=== PATIENT | female | born 1975 | race Caucasian/White ===

== ENCOUNTER 2017-01-13 12:08 | Day surgery (SDC) | payer MEDICAID ==
[2017-01-13] MEDS ORDERED: NS 1,000 ML IV SCH (13:00)
[2017-01-13] MEDS ORDERED: MIDAZOLAM 2 MG/2 ML VIAL ONE (13:05)
[2017-01-13] MEDS ORDERED: fentaNYL 100 MCG/2 ML INJ ONE (13:05)
[2017-01-13] MEDS ORDERED: IOPAMIDOL (ISOVUE-M 300) 15 ML VIAL IV ONE (13:36)
[2017-01-13] MEDS ORDERED: TRIAMCINOLONE ACETONIDE 200 MG/5 ML MDV IM ONE (13:36)
== END 2017-01-13 14:43 | disposition home health service (06) ==
LOC: FIMAGING 12:08
PROVIDERS: ATTEND Radiology Diagnostic Radiology
PROC: 3E0S3BZ Introduction of Anesthetic Agent into Epidural Space, Percutaneous Approach (ICD-10-PCS; principal; 2017-01-13 13:35)
PROC: 3E0S33Z Introduction of Anti-inflammatory into Epidural Space, Percutaneous Approach (ICD-10-PCS; principal; 2017-01-13 13:35)
DX: M51.16 Intervertebral disc disorders with radiculopathy, lumbar region (principal)
CPT/HCPCS: J2250; J3010; J3301; Q9967

== ENCOUNTER → 2017-01-16 | Outpatient (CLI) | payer MEDICAID | LOC: FIMAGING 09:18 | DX: Z12.31 Encounter for screening mammogram for malignant neoplasm of breast (principal) | CPT/HCPCS: G0202 ==

== ENCOUNTER → 2017-02-20 | Outpatient (CLI) | payer MEDICAID | LOC: FIMAGING 14:40 | PROVIDERS: ATTEND Family Medicine | DX: N63 Unspecified lump in breast (principal) | CPT/HCPCS: G0206 ==

== ENCOUNTER → 2017-08-21 | Outpatient (CLI) | payer MEDICAID | LOC: FIMAGING 15:39 | PROVIDERS: ATTEND Family Medicine | DX: Z09 Encounter for follow-up examination after completed treatment for conditions other than malignant neoplasm (principal); R92.8 Other abnormal and inconclusive findings on diagnostic imaging of breast ==